=== PATIENT | female | born 1975 | race Caucasian/White ===

== ENCOUNTER 2018-06-19 13:42 | Inpatient (IN) | payer OTHER ==
[2018-06-19 14:56] VITALS: BMI 61.6
--- NOTE | 2018-06-19 15:28 | HP ---
CIWA Score - CIWA Score Nausea/Vomitin-Mild Nausea/No Vomiting Muscle Tremors: 3 Anxiety: 1-Mildly Anxious Agitation: 0-Normal Activity Paroxysmal Sweats: No Perspiration Orientation: 0-Oriented Tacttile Disturbances: 0-None Auditory Disturbances: 0-None Visual Disturbances: 1-Very Mild Sensitivity Headache: 0-None Present CIWA-Ar Total Score: 6 Admission ROS S - HPI Allergies/Adverse Reactions: Allergies Allergy/AdvReac Type Severity Reaction Status Date / Time Penicillins Allergy Severe Difficulty Verified 06/03/16 17:30 Breathing sulfamethoxazole Allergy Intermediate Rash Verified 06/03/16 17:30 [From Bactrim] trimethoprim [From Bactrim] Allergy Intermediate Rash Verified 06/03/16 17:30 History of Present Illness: pt here requesting detox from alcohol use , reports 10-12 cans of 24 oz each /day x 4 years , reports tremors if not drinking , denies seizures, + sweating , nausea , abdominal discomfort/ diarrhea . Reports she usually starts drinking in the morning , and drinks all day , self - referred to facility , previously 1-2 years ago . On MMTP @ [facility] reportedly 145 mg /day . Latest use of etoh this morning, current symptoms as above, PILI 0.100 PMHx : asthma, visually impaired- cataracts bilaterally 2/2 congenital nystagmus severe OA , morbid obesity , anemia/ low platelets PSHx : gastric bypass 13 years ago psych : depression, anxiety , no meds denies SI / HI meds : states previously was on Symbicort latest use this morning , Albuterol prn , does not have pharmacy to provide phone number for verification of medications , states previous pharmacy went out of business . Ambulating w/ cane 2/2 r knee oa denies legal issues lives w/ daughter age 27 lmp 6 mo ago upt neg utox + mtd tobacco use : denies - Ebola screening Have you traveled outside of the country in the last 21 days: No Have you had contact with anyone from an Ebola affected area: No Have you been sick,other than usual withdrawal symptoms: No Do you have a fever: No Patient History - Patient Medical History Hx Anemia: Yes (on iron) Hx Asthma: Yes (on albuterol inhaler) Hx Chronic Obstructive Pulmonary Disease (COPD): No Hx Cancer: No Hx Cardiac Disorders: No Hx Congestive Heart Failure: No Hx Hypertension: Yes Hx Hypercholesterolemia: No Hx Pacemaker: No HX Cerebrovascular Accident: No Hx Seizures: No Hx Dementia: No Hx Diabetes: Yes (borderline) Hx Gastrointestinal Disorders: No Hx Liver Disease: No Hx Genitourinary Disorders: No Hx Sexually Transmitted Disorders: No Hx Renal Disease (ESRD): No Hx Thyroid Disease: No Hx Human Immunodeficiency Virus (HIV): No (03/03 last tested) Hx Hepatitis C: No Hx Depression: Yes (ANXIETY) Hx Suicide Attempt: No Hx Bipolar Disorder: No Hx Schizophrenia: No - Patient Surgical History Past Surgical History: Yes Hx Neurologic Surgery: No Hx Cataract Extraction: No Hx Cardiac Surgery: No Hx Lung Surgery: No Hx Breast Surgery: No Hx Breast Biopsy: No Hx Abdominal Surgery: Yes (GASTRIC BYPASS: 2004) Hx Appendectomy: No Hx Cholecystectomy: No Hx Genitourinary Surgery: No Hx Section: No Hx Orthopedic Surgery: No Hx Hysterectomy: No Anesthesia Reaction: No - PPD History Date: 06/05/16 - Reproductive History Last Menstrual Period: 05/30/16 - Smoking Cessation Smoking history: Former smoker Have you smoked in the past 12 months: No Aproximately how many cigarettes per day: 0 Cigars Per Day: 0 Hx Chewing Tobacco Use: No Initiated information on smoking cessation: No Family Disease History - Family Disease History Family Disease History: Diabetes: Grandparent, Mother (alcohol), Other: Mother Admission Physical Exam S - Vital Signs Vital Signs: Vital Signs - 24 hr 06/19/18 14:54 Temperature 98.2 F Pulse Rate 97 H Respiratory 20 Rate Blood Pressure 143/76 - Physical General Appearance: Yes: Mild Distress, Tremorous, Other (morbid obesity , ambulating w/ cane) HEENTM: Yes: Hearing grossly Normal, Normocephalic, Normal Voice, Pharynx Normal , Other (bilateral cataracts, + nystagmus poor dentition) Respiratory: Yes: Chest Non-Tender, Decreased Breath Sounds, [place] Neck: Yes: No masses,lesions,Nodules Breast: Yes: Breast Exam Deferred Cardiology: Yes: Regular Rhythm, Regular Rate, Tachycardia Abdominal: Yes: Non Tender, Protuberent Musculoskeletal: Yes: Joint Stiffness Extremities: Yes: Tremors Neurological: Yes: Fully Oriented, Alert, Motor Strength 5/5 Integumentary: Yes: Normal Color, Dry, Warm - Diagnostic (1) Alcohol dependence with uncomplicated withdrawal Current Visit: No Status: Chronic (2) Asthma Current Visit: No Status: Chronic Qualifiers: Asthma severity: mild intermittent Asthma complication type: with status asthmaticus (3) Opioid dependence on agonist therapy Current Visit: No Status: Chronic (4) Vision impairment Current Visit: No Status: Chronic Comment: SINCE BLIND RIGHT EYE BHS Breath Alcohol Content Breath Alcohol Content: 0.100 Urine Pregancy Test - Result Urine Test Results: Negative- NO Line Present Urine Drug Screen - Results Drug Screen Negative: No Urine Drug Screen Results: MTD-Methadone
[2018-06-19] MEDS ORDERED: MAGNESIUM CITRATE 300 ML BOTTLE PO PRN (15:33)
[2018-06-19] MEDS ORDERED: MAG HYDROX/AL HYDROX/SIMETH 30 ML UNIT-DOSE CUP PO PRN (15:33)
[2018-06-19] MEDS ORDERED: guaiFENesin/D-METHORPHAN HB 10 ML UNIT-DOSE CUPS PO PRN (15:33)
[2018-06-19] MEDS ORDERED: MAGNESIUM HYDROX 2400MG/30ML ORAL SUSPENSION 30 ML CUP PO PRN (15:33)
[2018-06-19] MEDS ORDERED: ACETAMINOPHEN 325 MG TABLET (FP) PO PRN (15:33)
[2018-06-19] MEDS ORDERED: P-EPHED 60MG/TRIPROLIDI 2.5MG TABLET PO PRN (15:33)
[2018-06-19] MEDS ORDERED: chlordiazePOXIDE HCL 25 MG CAPSULE PO PRN (15:33)
[2018-06-19] MEDS ORDERED: MENTHOL/PHENOL 1 EACH UD MM PRN (15:33)
[2018-06-19] MEDS ORDERED: ALBUTEROL SO4 0.083% IH SOL 2.5 MG/3 ML VIAL.NEB. NEB PRN (15:34)
[2018-06-19] MEDS: THIAMINE HCL 100 MG TABLET (FP) PO SCH (22:10)
[2018-06-19] MEDS: chlordiazePOXIDE HCL 25 MG CAPSULE PO SCH (22:11)
[2018-06-20 01:30] LABS: URINE APPEARANCE CLEAR; URINE BILIRUBIN NEGATIVE (<2.0 mg/dL); URINE COLOR LTYELLOW; URINE GLUCOSE (UA) NEGATIVE (NEGATIVE); URINE KETONE NEGATIVE (NEGATIVE); URINE LEUK ESTERASE NEGATIVE (NEGATIVE); URINE NITRITE NEGATIVE (NEGATIVE); URINE PROTEIN NEGATIVE (NEGATIVE); URINE UROBILINOGEN NEGATIVE mg/dL (0.2-1.0)
[2018-06-20] MEDS: chlordiazePOXIDE HCL 25 MG CAPSULE PO SCH ×4 (05:58→22:39)
[2018-06-20] MEDS ORDERED: METHADONE HCL 10 MG TABLET PO ONE (08:49)
[2018-06-20] MEDS ORDERED: METHADONE 120 MG, METHADONE 20 MG, METHADONE 5 MG PO ONE (09:15)
[2018-06-20 10:02] LABS: HEMATOCRIT 36.2 % (32.4-45.2); HEMOGLOBIN 10.9 GM/dL (10.7-15.3); MCH 24.4 pg (25.7-33.7); MCHC 30.1 g/dl (32.0-36.0); MEAN CELL VOLUME 80.9 fl (80-96); PLATELET COUNT 100 K/MM3 (134-434); RBC 4.47 M/mm3 (3.60-5.2); RDW 26.1 % (11.6-15.6); WHITE BLOOD COUNT 4.8 K/mm3 (4.0-10.0)
[2018-06-20] MEDS ORDERED: METHADONE HCL 10 MG TABLET ONE (10:24)
[2018-06-20] MEDS ORDERED: METHADONE HCL 5 MG TABLET ONE (10:24)
[2018-06-20] MEDS ORDERED: METHADONE HCL 40 MG DISPERSABLE TABLET ONE (10:24)
[2018-06-20 10:25] LABS: ALBUMIN 3.1 g/dl (3.4-5.0); ALK PHOS 113 U/L (45-117); ANION GAP 7 MMOL/L (8-16); BILIRUBIN,TOTAL 0.9 mg/dL (0.2-1); BLOOD UREA NITROGEN 6 mg/dL (7-18); CALCIUM 8.4 mg/dL (8.5-10.1); CHLORIDE 100 mmol/L (98-107); CO2 30 mmol/L (21-32); CREATININE 0.5 mg/dL (0.55-1.3); GLUCOSE,RANDOM 72 mg/dL (74-106); POTASSIUM 4.1 mmol/L (3.5-5.1); SGOT/AST 73 U/L (15-37); SGPT/ALT 72 U/L (13-61); SODIUM 138 mmol/L (136-145); TOT PROT 7.3 g/dl (6.4-8.2)
[2018-06-20] MEDS: PRENATAL VITAMINS W/ FOLIC ACID TABLET (FP) PO SCH (10:26)
[2018-06-20] MEDS ORDERED: ONDANSETRON *ODT* 4 MG TABLET SL PRN (10:42)
--- NOTE | 2018-06-20 10:42 | PN ---
S CIWA - CIWA Score Nausea/Vomitin-No Nausea/No Vomiting Muscle Tremors: 4-Moderate,w/Arms Extend Anxiety: 4-Mod. Anxious/Guarded Agitation: 4-Moderately Restless Paroxysmal Sweats: 3 Orientation: 0-Oriented Tacttile Disturbances: 0-None Auditory Disturbances: 0-None Visual Disturbances: 0-None Headache: 1-Very Mild CIWA-Ar Total Score: 16 BHS Progress Note (SOAP) Subjective: headache shakes sweats interrupted sleep body aches nausea Objective: 06/20/18 10:41 Vital Signs Temperature 98.8 F 06/20/18 09:36 Pulse Rate 95 H 06/20/18 09:36 Respiratory Rate 16 06/20/18 09:36 Blood Pressure 148/90 06/20/18 09:36 O2 Sat by Pulse Oximetry (%) Laboratory Tests 06/19/18 06/20/18 06/20/18 22:50 07:00 07:00 WBC 4.8 RBC 4.47 Hgb 10.9 Hct 36.2 MCV 80.9 MCH 24.4 L MCHC 30.1 L RDW 26.1 H Plt Count 100 L MPV 11.0 Sodium 138 Potassium 4.1 Chloride 100 Carbon Dioxide 30 Anion Gap 7 L BUN 6 L Creatinine 0.5 L Creat Clearance w eGFR > 60 Random Glucose 72 L Calcium 8.4 L Total Bilirubin 0.9 AST 73 H ALT 72 H Alkaline Phosphatase 113 Total Protein 7.3 Albumin 3.1 L Urine Color Ltyellow Urine Appearance Clear Urine pH 5.0 D Ur Specific [place] 1.009 L Urine Protein Negative Urine Glucose (UA) Negative Urine Ketones Negative Urine Blood Negative Urine Nitrite Negative Urine Bilirubin Negative Urine Urobilinogen Negative Ur Leukocyte Esterase Negative aaox3 lying in bed no acute distress Assessment: 06/20/18 10:42 withdrawal sx Plan: continue detox increase fluids micky parrish prn
[2018-06-20] MEDS: THIAMINE HCL 100 MG TABLET (FP) PO SCH (22:39)
[2018-06-20] MEDS: IBUPROFEN 400 MG TABLET (FP) PO PRN (22:41)
[2018-06-21] MEDS ORDERED: METHADONE HCL 40 MG DISPERSABLE TABLET ONE (04:50)
[2018-06-21] MEDS ORDERED: METHADONE HCL 5 MG TABLET ONE (04:50)
[2018-06-21] MEDS ORDERED: METHADONE HCL 10 MG TABLET ONE (04:51)
[2018-06-21] MEDS: METHADONE 120 MG, METHADONE 20 MG, METHADONE 5 MG PO SCH (05:29)
[2018-06-21] MEDS: chlordiazePOXIDE HCL 25 MG CAPSULE PO SCH ×3 (05:29→17:58)
[2018-06-21] MEDS ORDERED: METHADONE HCL 40 MG DISPERSABLE TABLET PO SCH (06:00)
[2018-06-21] MEDS: PRENATAL VITAMINS W/ FOLIC ACID TABLET (FP) PO SCH (10:19)
[2018-06-21] MEDS: ALBUTEROL SO4 8 GM HFA INHALER IH PRN (10:19)
--- NOTE | 2018-06-21 11:15 | PN ---
S CIWA - CIWA Score Nausea/Vomitin-No Nausea/No Vomiting Muscle Tremors: 4-Moderate,w/Arms Extend Anxiety: 3 Agitation: 3 Paroxysmal Sweats: 3 Orientation: 0-Oriented Tacttile Disturbances: 0-None Auditory Disturbances: 0-None Visual Disturbances: 0-None Headache: 0-None Present CIWA-Ar Total Score: 13 S Progress Note (SOAP) Subjective: body aches headache restless legs anxiety Objective: 06/21/18 11:14 Vital Signs Temperature 98.4 F 06/21/18 09:11 Pulse Rate 95 H 06/21/18 09:11 Respiratory Rate 18 06/21/18 09:11 Blood Pressure 132/74 06/21/18 09:11 O2 Sat by Pulse Oximetry (%) Laboratory Tests 06/19/18 06/20/18 06/20/18 22:50 07:00 07:00 WBC 4.8 RBC 4.47 Hgb 10.9 Hct 36.2 MCV 80.9 MCH 24.4 L MCHC 30.1 L RDW 26.1 H Plt Count 100 L MPV 11.0 Sodium 138 Potassium 4.1 Chloride 100 Carbon Dioxide 30 Anion Gap 7 L BUN 6 L Creatinine 0.5 L Creat Clearance w eGFR > 60 Random Glucose 72 L Calcium 8.4 L Total Bilirubin 0.9 AST 73 H ALT 72 H Alkaline Phosphatase 113 Total Protein 7.3 Albumin 3.1 L Urine Color Ltyellow Urine Appearance Clear Urine pH 5.0 D Ur Specific [place] 1.009 L Urine Protein Negative Urine Glucose (UA) Negative Urine Ketones Negative Urine Blood Negative Urine Nitrite Negative Urine Bilirubin Negative Urine Urobilinogen Negative Ur Leukocyte Esterase Negative RPR Titer 06/20/18 07:00 WBC RBC Hgb Hct MCV MCH MCHC RDW Plt Count MPV Sodium Potassium Chloride Carbon Dioxide Anion Gap BUN Creatinine Creat Clearance w eGFR Random Glucose Calcium Total Bilirubin AST ALT Alkaline Phosphatase Total Protein Albumin Urine Color Urine Appearance Urine pH Ur Specific [place] Urine Protein Urine Glucose (UA) Urine Ketones Urine Blood Urine Nitrite Urine Bilirubin Urine Urobilinogen Ur Leukocyte Esterase RPR Titer Nonreactive aaox3 lying in bed no acute distress Assessment: 06/21/18 11:14 withdrawal sx Plan: continue detox increase fluids motrin/tylenol prn
[2018-06-21] MEDS: IBUPROFEN 400 MG TABLET (FP) PO PRN ×2 (14:00→22:10)
[2018-06-21] MEDS: chlordiazePOXIDE 5 MG CAPSULE PO SCH (22:07)
[2018-06-21] MEDS: MELATONIN 5 MG TABLETS PO PRN (22:07)
[2018-06-21] MEDS: THIAMINE HCL 100 MG TABLET (FP) PO SCH (22:07)
[2018-06-22] MEDS ORDERED: METHADONE HCL 5 MG TABLET ONE (04:50)
[2018-06-22] MEDS ORDERED: METHADONE HCL 40 MG DISPERSABLE TABLET ONE (04:51)
[2018-06-22] MEDS ORDERED: METHADONE HCL 10 MG TABLET ONE (04:52)
[2018-06-22] MEDS: chlordiazePOXIDE 5 MG CAPSULE PO SCH ×3 (05:20→17:18)
[2018-06-22] MEDS: METHADONE 120 MG, METHADONE 20 MG, METHADONE 5 MG PO SCH (05:21)
--- NOTE | 2018-06-22 10:20 | PN ---
BHS Progress Note (SOAP) Subjective: john sweats/shakes Objective: 06/22/18 10:19 Vital Signs Temperature 99.5 F 06/22/18 09:26 Pulse Rate 89 06/22/18 09:26 Respiratory Rate 18 06/22/18 09:26 Blood Pressure 132/86 06/22/18 09:26 O2 Sat by Pulse Oximetry (%) aaox3 ambulating no acute distress Assessment: 06/22/18 10:19 withdrawal sx Plan: continue detox increase fluids d/c in am
[2018-06-22] MEDS: PRENATAL VITAMINS W/ FOLIC ACID TABLET (FP) PO SCH (10:40)
[2018-06-22] MEDS: IBUPROFEN 400 MG TABLET (FP) PO PRN ×2 (10:42→22:18)
[2018-06-22] MEDS: THIAMINE HCL 100 MG TABLET (FP) PO SCH (22:17)
[2018-06-22] MEDS: chlordiazePOXIDE HCL 10 MG CAPSULE PO SCH (22:17)
[2018-06-22] MEDS: MELATONIN 5 MG TABLETS PO PRN (22:17)
[2018-06-22] MEDS: ALBUTEROL SO4 8 GM HFA INHALER IH PRN (22:18)
[2018-06-23] MEDS ORDERED: METHADONE HCL 5 MG TABLET ONE (04:47)
[2018-06-23] MEDS ORDERED: METHADONE HCL 40 MG DISPERSABLE TABLET ONE (04:47)
[2018-06-23] MEDS ORDERED: METHADONE HCL 10 MG TABLET ONE (04:47)
[2018-06-23] MEDS: chlordiazePOXIDE HCL 10 MG CAPSULE PO SCH (05:28)
[2018-06-23] MEDS: METHADONE 120 MG, METHADONE 20 MG, METHADONE 5 MG PO SCH (05:29)
[2018-06-23 06:35] VITALS: BP 124/74; PULSE 79; TEMP 97.9
--- NOTE | 2018-06-23 13:46 | DS ---
[facility] Detox Discharge Summary Admission Date: 06/19/18 Discharge Date: 06/23/18 - History Present History: Alcohol Dependence - Physical Exam Results Vital Signs: Vital Signs Temperature 97.9 F 06/23/18 06:00 Pulse Rate 79 06/23/18 06:00 Respiratory Rate 18 06/23/18 06:00 Blood Pressure 124/74 06/23/18 06:00 O2 Sat by Pulse Oximetry (%) Pertinent Admission Physical Exam Findings: PATIENT TOLERATED DETOX WITHOUT ADVERSE EVENT. PATIENT D/C HOME IN STABLE CLINICAL CONDITION. DENIES SI/HI. PATIENT ENCOURAGED TO ATTEND GROUP MEETINGS TO PREVENT RELAPSE AND TO FOLLOW UP WITH PCP WITHIN ONE WEEK OF DISCHARGE. PATIENT GIVEN D/C INSTRUCTIONS BY STAFF AND INFORMED TO GO TO ER IF WITHDRAWAL SYMPTOMS OCCUR. - Treatment Hospital Course: Detox Protocol Followed, Detoxed Safely, Responded well, Discharged Condition Good - Medication Discharge Medications: Ambulatory Orders Albuterol Sulfate Inhaler - [Ventolin Hfa Inhaler -] 2 inh PO Q4H PRN 03/18/16 Budesonide/Formeterol Fumarate [SYMBICORT 80/4.5mcg -] 1 inh PO BID 06/19/18 - AMA Did Patient Leave Against Medical Advice: No
== END 2018-06-23 06:57 | disposition home or self-care (01) | DRG 773 ==
LOC: YASAS 13:42 → Y6N 17:39
PROC: HZ2ZZZZ Detoxification Services for Substance Abuse Treatment (ICD-10-PCS; principal; 2018-06-19)
PROC: HZ2ZZZZ Detoxification Services for Substance Abuse Treatment (ICD-10-PCS; 2018-06-19)
DX: F10.230 Alcohol dependence with withdrawal, uncomplicated (principal); F11.20 Opioid dependence, uncomplicated; F41.9 Anxiety disorder, unspecified; F31.9 Bipolar disorder, unspecified; I10 Essential (primary) hypertension; E11.9 Type 2 diabetes mellitus without complications; J45.22 Mild intermittent asthma with status asthmaticus; H54.7 Unspecified visual loss; M17.10 Unilateral primary osteoarthritis, unspecified knee; E66.01 Morbid (severe) obesity due to excess calories; Z68.44 Body mass index [BMI] 60.0-69.9, adult; R26.89 Other abnormalities of gait and mobility; Z99.89 Dependence on other enabling machines and devices; Z88.0 Allergy status to penicillin; Z88.2 Allergy status to sulfonamides; Z98.84 Bariatric surgery status
CPT/HCPCS: 36415; 80053; 81003; 85027; 86593

== ENCOUNTER 2018-06-25 13:27 | Inpatient (IN) | payer OTHER ==
[2018-06-25 17:34] VITALS: BMI 62.3
--- NOTE | 2018-06-25 18:48 | HP ---
Admission [facility] Chief Complaint: alcohol rehabilitation Allergies/Adverse Reactions: Allergies Allergy/AdvReac Type Severity Reaction Status Date / Time Penicillins Allergy Severe Difficulty Verified 06/25/18 17:22 Breathing sulfamethoxazole Allergy Intermediate Rash Verified 06/25/18 17:22 [From Bactrim] trimethoprim [From Bactrim] Allergy Intermediate Rash Verified 06/25/18 17:22 History of Present Illness: 42 yo female with hx of alcohol dependence is here seeking rehabilitation, after completing detox at [facility] 06/19/18 -06/23/18. On MMTP @ [facility] reportedly 145 mg /day, last medicated today. PMHx : asthma, visually impaired- cataracts bilaterally 2/2 congenital nystagmus, severe OA , morbid obesity, anemia/ low platelets , gastric bypass 13 years ago ,depression, anxiety. Denies suicidal / homicidal ideation. Denies any legal issues at this time. Exam Limitations: No Limitations - Ebola screening Have you traveled outside of the country in the last 21 days: No Have you had contact with anyone from an Ebola affected area: No Have you been sick,other than usual withdrawal symptoms: No - Review of Systems Constitutional: Changes in sleep EENT: reports: See HPI (legally blind, reports some vision present in the left eye) Respiratory: reports: See HPI, SOB with Exertion Cardiac: reports: No Symptoms Reported GI: reports: No Symptoms Reported : reports: Urgency Musculoskeletal: reports: Joint Pain (AO), Other (uses cane for ambulation) Integumentary: reports: No Symptoms Reported Neuro: reports: Numbness (both hands, carpal tunnel right hand) Endocrine: reports: Increased Thirst Hematology: reports: Anemia, Other (low platelets) Psychiatric: reports: Orientated x3, Depressed Other Systems: Reviewed and Negative Patient History - Patient Medical History Hx Anemia: Yes (on iron) Hx Asthma: Yes Hx Chronic Obstructive Pulmonary Disease (COPD): No Hx Cancer: No Hx Cardiac Disorders: No Hx Congestive Heart Failure: No Hx Hypertension: Yes (currently not on medication) Hx Hypercholesterolemia: No Hx Pacemaker: No HX Cerebrovascular Accident: No Hx Seizures: No Hx Dementia: No Hx Diabetes: No Hx Gastrointestinal Disorders: Yes (gastritis) Hx Liver Disease: No Hx Genitourinary Disorders: No Hx Sexually Transmitted Disorders: No Hx Renal Disease (ESRD): No Hx Thyroid Disease: No Hx Human Immunodeficiency Virus (HIV): No (03/03 last tested) Hx Hepatitis C: No Hx Depression: Yes Hx Suicide Attempt: No Hx Bipolar Disorder: No Hx Schizophrenia: No - Patient Surgical History Past Surgical History: Yes Hx Neurologic Surgery: No Hx Cataract Extraction: No Hx Cardiac Surgery: No Hx Lung Surgery: No Hx Breast Surgery: No Hx Breast Biopsy: No Hx Abdominal Surgery: Yes (GASTRIC BYPASS: 2004) Hx Appendectomy: No Hx Cholecystectomy: No Hx Genitourinary Surgery: No Hx Section: No Hx Orthopedic Surgery: No Hx Hysterectomy: No Anesthesia Reaction: No - PPD History Previous Implant?: No Documented Results: Negative w/proof Date: 06/21/18 Results: 0 mm PPD to be Administered?: No - Reproductive History Patient is a Female of Child Bearing Age (11 -55 yrs old): Yes Last Menstrual Period: 01/19/18 Patient : No - Smoking Cessation Smoking history: Former smoker Have you smoked in the past 12 months: No Aproximately how many cigarettes per day: 0 If you are a former smoker, when did you quit?: 20 yrs. ago Cigars Per Day: 0 Hx Chewing Tobacco Use: No Initiated information on smoking cessation: No - Substance & Tx. History Hx Alcohol Use: Yes Hx Substance Use: Yes Substance Use Type: Alcohol Hx Substance Use Treatment: Yes ([facility] 06/19/18 -06/23/18) - Substances Abused Alcohol Route: Oral Frequency: Daily Amount used: 12 - 16 x 24 oz can beer Age of first use: 31 Date of Last Use: 06/19/18 Family Disease History - Family Disease History Family Disease History: Diabetes: Grandparent, Mother (alcohol), Other: Mother Admission Physical Exam [facility] - Vital Signs Vital Signs: Vital Signs - 24 hr 06/25/18 17:29 Temperature 96.0 F L Pulse Rate 87 Respiratory 18 Rate Blood Pressure 126/74 - Physical General Appearance: Yes: Appropriately Dressed, Obese, Anxious HEENTM: Yes: Hearing grossly Normal, Normal ENT Inspection, Normocephalic, Normal Voice, Pharynx Normal, Tm's normal, Other (bilateral cataracts, + nystagmus poor dentition) Respiratory: Yes: Within Normal Limits Neck: Yes: Within Normal Limits Breast: Yes: Breast Exam Deferred Cardiology: Yes: Regular Rhythm, Regular Rate Abdominal: Yes: Normal Bowel Sounds, Non Tender, Soft, Protuberent Genitourinary: Yes: Within Normal Limits Back: Yes: Normal Inspection Musculoskeletal: Yes: full range of Motion, Gait Steady, Pelvis Stable, Other ( uses cane for ambulation) Extremities: Yes: Normal Capillary Refill, Normal Inspection, Normal Range of Motion, Non-Tender Neurological: Yes: specialist employee labor relations II-XII NML intact, Fully Oriented, Alert, Motor Strength 5/5, Depressed Affect Integumentary: Yes: Normal Color, Dry, Warm Lymphatic: Yes: Within Normal Limits - Diagnostic (1) Alcohol dependence Current Visit: Yes Status: Acute Qualifiers: Substance use status: uncomplicated Qualified Code(s): F10.20 - Alcohol dependence, uncomplicated (2) Anemia Current Visit: Yes Status: Chronic Qualifiers: Anemia type: iron deficiency Iron deficiency anemia type: inadequate dietary iron intake Qualified Code(s): D50.8 - Other iron deficiency anemias (3) Chronic back pain Current Visit: No Status: Chronic Qualifiers: Back pain location: low back pain Back pain laterality: bilateral Sciatica presence: without sciatica Qualified Code(s): M54.5 - Low back pain (4) DM (diabetes mellitus), type 2 Current Visit: Yes Status: Chronic Qualifiers: Diabetes mellitus buttermaker continuous churn insulin use: without buttermaker continuous churn use Diabetes mellitus complication status: without complication Qualified Code(s): E11.9 - Type 2 diabetes mellitus without complications Comment: DIETARY CONTROL (5) Hypertension Current Visit: No Status: Chronic Qualifiers: Hypertension type: essential hypertension Qualified Code(s): I10 - Essential (primary) hypertension (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 Dose pending verification (8) Vision impairment Current Visit: Yes Status: Chronic Comment: SINCE BLIND RIGHT EYE BHS Breath Alcohol Content Breath Alcohol Content: 0 Urine Pregancy Test - Result Urine Test Results: Negative- NO Line Present Urine Drug Screen - Results Drug Screen Negative: No Urine Drug Screen Results: BZO-Benzodiazepines, MTD-Methadone Inpatient Rehab Admission - Initial Determination Are CD services needed?: Yes Free of communicable disease: Yes Not in need of hospitalization: Yes - Rehab Admission Criteria Previous failed treatment: Yes Poor recovery environment: Yes Comorbidities: Yes Lacks judgement: Yes Patient is meeting Inpatient Rehab admission criteria:: Yes
[2018-06-25] MEDS ORDERED: ALBUTEROL SO4 8 GM HFA INHALER IH PRN (18:49)
[2018-06-25] MEDS ORDERED: ALBUTEROL SO4 2.5/IPRATROPIUM 0.5 INH SOL 3 ML VIAL.NEB. NEB PRN (18:50)
[2018-06-25] MEDS ORDERED: IBUPROFEN 400 MG TABLET (FP) PO PRN (18:51)
[2018-06-25] MEDS ORDERED: MAGNESIUM CITRATE 300 ML BOTTLE PO PRN (18:51)
[2018-06-25] MEDS ORDERED: LOPERAMIDE HCL 2 MG CAPSULE PO PRN (18:51)
[2018-06-25] MEDS ORDERED: P-EPHED 60MG/TRIPROLIDI 2.5MG TABLET PO PRN (18:51)
[2018-06-25] MEDS ORDERED: ACETAMINOPHEN 325 MG TABLET (FP) PO PRN (18:51)
[2018-06-25] MEDS ORDERED: MENTHOL/PHENOL 1 EACH UD MM PRN (18:51)
[2018-06-25] MEDS ORDERED: MAGNESIUM HYDROX 2400MG/30ML ORAL SUSPENSION 30 ML CUP PO PRN (18:51)
[2018-06-25] MEDS ORDERED: MAG HYDROX/AL HYDROX/SIMETH 30 ML UNIT-DOSE CUP PO PRN (18:51)
[2018-06-25] MEDS ORDERED: guaiFENesin/D-METHORPHAN HB 10 ML UNIT-DOSE CUPS PO PRN (18:51)
[2018-06-25] MEDS ORDERED: MELATONIN 5 MG TABLETS PO PRN (22:00)
[2018-06-25] MEDS: LIDOCAINE PATCH REMOVAL MC SCH (23:38)
[2018-06-25] MEDS: THIAMINE HCL 100 MG TABLET (FP) PO SCH (23:39)
[2018-06-25] MEDS: BUDESONIDE/FORMETEROL FUMARATE 80/4.5 mcg INHALER IH SCH (23:39)
[2018-06-25] MEDS ORDERED: PT OWN MED DRAWER 7, Y5N ONE (23:47)
[2018-06-26 01:20] LABS: URINE APPEARANCE CLEAR; URINE BILIRUBIN NEGATIVE (<2.0 mg/dL); URINE COLOR STRAW; URINE GLUCOSE (UA) NEGATIVE (NEGATIVE); URINE KETONE NEGATIVE (NEGATIVE); URINE LEUK ESTERASE NEGATIVE (NEGATIVE); URINE NITRITE NEGATIVE (NEGATIVE); URINE PROTEIN NEGATIVE (NEGATIVE); URINE UROBILINOGEN NEGATIVE mg/dL (0.2-1.0)
[2018-06-26] MEDS ORDERED: METHADONE HCL 10 MG TABLET PO SCH (07:15)
[2018-06-26] MEDS ORDERED: METHADONE HCL 5 MG TABLET ONE (07:53)
[2018-06-26] MEDS ORDERED: METHADONE HCL 10 MG TABLET ONE (07:53)
[2018-06-26] MEDS ORDERED: METHADONE HCL 40 MG DISPERSABLE TABLET ONE (07:54)
[2018-06-26] MEDS: METHADONE 120 MG, METHADONE 20 MG, METHADONE 5 MG PO SCH (07:55)
[2018-06-26] MEDS: FERROUS SO4 325 MG TABLET (FP) PO SCH (07:58)
[2018-06-26] MEDS: PRENATAL VITAMINS W/ FOLIC ACID TABLET (FP) PO SCH (10:59)
[2018-06-26] MEDS: LIDOCAINE 5% TOPICAL PATCH TP SCH (10:59)
[2018-06-26] MEDS: BUDESONIDE/FORMETEROL FUMARATE 80/4.5 mcg INHALER IH SCH ×2 (11:00→21:42)
[2018-06-26] MEDS: THIAMINE HCL 100 MG TABLET (FP) PO SCH (21:41)
[2018-06-26] MEDS: LIDOCAINE PATCH REMOVAL MC SCH (21:41)
[2018-06-26] MEDS: CYCLOBENZAPRINE HCL 5 MG TABLET PO SCH (21:41)
[2018-06-27] MEDS ORDERED: METHADONE HCL 40 MG DISPERSABLE TABLET ONE (03:24)
[2018-06-27] MEDS ORDERED: METHADONE HCL 5 MG TABLET ONE (03:24)
[2018-06-27] MEDS ORDERED: METHADONE HCL 10 MG TABLET ONE (03:24)
[2018-06-27] MEDS: METHADONE 120 MG, METHADONE 20 MG, METHADONE 5 MG PO SCH (06:29)
[2018-06-27] MEDS: CYCLOBENZAPRINE HCL 5 MG TABLET PO SCH ×3 (06:30→21:57)
[2018-06-27] MEDS: FERROUS SO4 325 MG TABLET (FP) PO SCH (07:32)
[2018-06-27] MEDS: LIDOCAINE 5% TOPICAL PATCH TP SCH (10:43)
[2018-06-27] MEDS: PRENATAL VITAMINS W/ FOLIC ACID TABLET (FP) PO SCH (10:43)
[2018-06-27] MEDS: BUDESONIDE/FORMETEROL FUMARATE 80/4.5 mcg INHALER IH SCH ×2 (10:43→21:57)
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
[2018-06-27] MEDS: hydrOXYzine PAMOATE 50 MG CAPSULE (FP) PO PRN (21:57)
[2018-06-27] MEDS: THIAMINE HCL 100 MG TABLET (FP) PO SCH (21:57)
[2018-06-27] MEDS: LIDOCAINE PATCH REMOVAL MC SCH (21:59)
[2018-06-28] MEDS ORDERED: METHADONE HCL 10 MG TABLET ONE (03:02)
[2018-06-28] MEDS ORDERED: METHADONE HCL 5 MG TABLET ONE (03:02)
[2018-06-28] MEDS ORDERED: METHADONE HCL 40 MG DISPERSABLE TABLET ONE (03:03)
[2018-06-28] MEDS: CYCLOBENZAPRINE HCL 5 MG TABLET PO SCH ×3 (06:19→21:46)
[2018-06-28] MEDS: METHADONE 120 MG, METHADONE 20 MG, METHADONE 5 MG PO SCH (06:20)
[2018-06-28] MEDS: FERROUS SO4 325 MG TABLET (FP) PO SCH (07:33)
[2018-06-28] MEDS ORDERED: PT OWN MED DRAWER 7, Y5N ONE ×2 (08:47→10:50)
[2018-06-28] MEDS: LIDOCAINE 5% TOPICAL PATCH TP SCH (10:35)
[2018-06-28] MEDS: PRENATAL VITAMINS W/ FOLIC ACID TABLET (FP) PO SCH (10:35)
[2018-06-28] MEDS: BUDESONIDE/FORMETEROL FUMARATE 80/4.5 mcg INHALER IH SCH ×2 (10:37→21:47)
[2018-06-28] MEDS: THIAMINE HCL 100 MG TABLET (FP) PO SCH (21:46)
[2018-06-28] MEDS: hydrOXYzine PAMOATE 50 MG CAPSULE (FP) PO PRN (21:46)
[2018-06-28] MEDS: LIDOCAINE PATCH REMOVAL MC SCH (21:47)
[2018-06-29] MEDS ORDERED: METHADONE HCL 40 MG DISPERSABLE TABLET ONE (05:51)
[2018-06-29] MEDS ORDERED: METHADONE HCL 5 MG TABLET ONE (05:51)
[2018-06-29] MEDS ORDERED: METHADONE HCL 10 MG TABLET ONE (05:51)
[2018-06-29] MEDS: CYCLOBENZAPRINE HCL 5 MG TABLET PO SCH ×3 (06:20→21:19)
[2018-06-29] MEDS: METHADONE 120 MG, METHADONE 20 MG, METHADONE 5 MG PO SCH (06:20)
[2018-06-29] MEDS: FERROUS SO4 325 MG TABLET (FP) PO SCH (07:26)
[2018-06-29] MEDS: LIDOCAINE 5% TOPICAL PATCH TP SCH (10:38)
[2018-06-29] MEDS: COLLOIDAL OATMEAL 1 BAR EACH TP PRN (10:38)
[2018-06-29] MEDS: PRENATAL VITAMINS W/ FOLIC ACID TABLET (FP) PO SCH (10:39)
[2018-06-29] MEDS: BUDESONIDE/FORMETEROL FUMARATE 80/4.5 mcg INHALER IH SCH ×2 (10:39→21:18)
[2018-06-29] MEDS ORDERED: PT OWN MED DRAWER 7, Y5N ONE ×2 (20:45→21:47)
[2018-06-29] MEDS: hydrOXYzine PAMOATE 50 MG CAPSULE (FP) PO PRN (21:19)
[2018-06-29] MEDS: THIAMINE HCL 100 MG TABLET (FP) PO SCH (21:19)
[2018-06-29] MEDS: LIDOCAINE PATCH REMOVAL MC SCH (21:19)
[2018-06-30] MEDS ORDERED: METHADONE HCL 5 MG TABLET ONE (05:58)
[2018-06-30] MEDS ORDERED: METHADONE HCL 10 MG TABLET ONE (05:59)
[2018-06-30] MEDS ORDERED: METHADONE HCL 40 MG DISPERSABLE TABLET ONE (05:59)
[2018-06-30] MEDS: CYCLOBENZAPRINE HCL 5 MG TABLET PO SCH ×3 (06:23→21:48)
[2018-06-30] MEDS: METHADONE 120 MG, METHADONE 20 MG, METHADONE 5 MG PO SCH (06:24)
[2018-06-30] MEDS: FERROUS SO4 325 MG TABLET (FP) PO SCH (07:08)
[2018-06-30] MEDS ORDERED: PT OWN MED DRAWER 7, Y5N ONE (08:41)
[2018-06-30] MEDS: PRENATAL VITAMINS W/ FOLIC ACID TABLET (FP) PO SCH (10:35)
[2018-06-30] MEDS: BUDESONIDE/FORMETEROL FUMARATE 80/4.5 mcg INHALER IH SCH ×2 (10:35→21:48)
[2018-06-30] MEDS: LIDOCAINE 5% TOPICAL PATCH TP SCH (10:35)
[2018-06-30] MEDS: THIAMINE HCL 100 MG TABLET (FP) PO SCH (21:48)
[2018-06-30] MEDS: hydrOXYzine PAMOATE 50 MG CAPSULE (FP) PO PRN (21:48)
[2018-06-30] MEDS: LIDOCAINE PATCH REMOVAL MC SCH (21:49)
[2018-07-01] MEDS ORDERED: METHADONE HCL 5 MG TABLET ONE (06:28)
[2018-07-01] MEDS ORDERED: METHADONE HCL 10 MG TABLET ONE (06:28)
[2018-07-01] MEDS ORDERED: METHADONE HCL 40 MG DISPERSABLE TABLET ONE (06:29)
[2018-07-01] MEDS: CYCLOBENZAPRINE HCL 5 MG TABLET PO SCH ×3 (06:32→21:54)
[2018-07-01] MEDS: METHADONE 120 MG, METHADONE 20 MG, METHADONE 5 MG PO SCH (06:32)
[2018-07-01] MEDS: FERROUS SO4 325 MG TABLET (FP) PO SCH (07:27)
[2018-07-01] MEDS: PRENATAL VITAMINS W/ FOLIC ACID TABLET (FP) PO SCH (10:21)
[2018-07-01] MEDS: BUDESONIDE/FORMETEROL FUMARATE 80/4.5 mcg INHALER IH SCH ×2 (10:21→21:55)
[2018-07-01] MEDS: LIDOCAINE 5% TOPICAL PATCH TP SCH (10:21)
[2018-07-01] MEDS: THIAMINE HCL 100 MG TABLET (FP) PO SCH (21:54)
[2018-07-01] MEDS: hydrOXYzine PAMOATE 50 MG CAPSULE (FP) PO PRN (21:55)
[2018-07-01] MEDS: LIDOCAINE PATCH REMOVAL MC SCH (21:55)
[2018-07-02] MEDS ORDERED: METHADONE HCL 5 MG TABLET ONE (05:58)
[2018-07-02] MEDS ORDERED: METHADONE HCL 10 MG TABLET ONE (05:58)
[2018-07-02] MEDS ORDERED: METHADONE HCL 40 MG DISPERSABLE TABLET ONE (05:59)
[2018-07-02] MEDS: CYCLOBENZAPRINE HCL 5 MG TABLET PO SCH ×3 (06:25→21:35)
[2018-07-02] MEDS: METHADONE 120 MG, METHADONE 20 MG, METHADONE 5 MG PO SCH (06:26)
[2018-07-02] MEDS: FERROUS SO4 325 MG TABLET (FP) PO SCH (07:22)
[2018-07-02] MEDS: PRENATAL VITAMINS W/ FOLIC ACID TABLET (FP) PO SCH (10:35)
[2018-07-02] MEDS: LIDOCAINE 5% TOPICAL PATCH TP SCH (10:35)
[2018-07-02] MEDS: BUDESONIDE/FORMETEROL FUMARATE 80/4.5 mcg INHALER IH SCH ×2 (10:35→21:33)
[2018-07-02] MEDS: MINERAL OIL/PETROLAT/WATER TOPICAL CREAM 113 GM JAR TP SCH (16:10)
[2018-07-02] MEDS: LIDOCAINE PATCH REMOVAL MC SCH (21:35)
[2018-07-02] MEDS: hydrOXYzine PAMOATE 50 MG CAPSULE (FP) PO PRN (21:35)
[2018-07-02] MEDS: THIAMINE HCL 100 MG TABLET (FP) PO SCH (21:35)
[2018-07-02] MEDS: TOLNAFTATE 1% CREAM 15 GM TUBE TP SCH (21:37)
[2018-07-03] MEDS ORDERED: METHADONE HCL 10 MG TABLET ONE (06:02)
[2018-07-03] MEDS ORDERED: METHADONE HCL 40 MG DISPERSABLE TABLET ONE (06:02)
[2018-07-03] MEDS ORDERED: METHADONE HCL 5 MG TABLET ONE (06:02)
[2018-07-03] MEDS: METHADONE 120 MG, METHADONE 20 MG, METHADONE 5 MG PO SCH (06:27)
[2018-07-03] MEDS: CYCLOBENZAPRINE HCL 5 MG TABLET PO SCH ×3 (06:27→21:38)
[2018-07-03] MEDS: FERROUS SO4 325 MG TABLET (FP) PO SCH (07:02)
[2018-07-03] MEDS ORDERED: ALBUTEROL SO4 2.5/IPRATROPIUM 0.5 INH SOL 3 ML VIAL.NEB. NEB PRN (07:47)
[2018-07-03] MEDS: LIDOCAINE 5% TOPICAL PATCH TP SCH (10:41)
[2018-07-03] MEDS: PRENATAL VITAMINS W/ FOLIC ACID TABLET (FP) PO SCH (10:41)
[2018-07-03] MEDS: TOLNAFTATE 1% CREAM 15 GM TUBE TP SCH ×2 (10:41→21:44)
[2018-07-03] MEDS: BUDESONIDE/FORMETEROL FUMARATE 80/4.5 mcg INHALER IH SCH ×2 (10:41→21:37)
[2018-07-03] MEDS: MINERAL OIL/PETROLAT/WATER TOPICAL CREAM 113 GM JAR TP SCH (10:42)
[2018-07-03] MEDS ORDERED: PT OWN MED DRAWER 7, Y5N ONE (10:56)
[2018-07-03] MEDS: hydrOXYzine PAMOATE 50 MG CAPSULE (FP) PO PRN (21:38)
[2018-07-03] MEDS: THIAMINE HCL 100 MG TABLET (FP) PO SCH (21:38)
[2018-07-03] MEDS: LIDOCAINE PATCH REMOVAL MC SCH (21:44)
[2018-07-04] MEDS ORDERED: METHADONE HCL 40 MG DISPERSABLE TABLET ONE (02:56)
[2018-07-04] MEDS ORDERED: METHADONE HCL 10 MG TABLET ONE (02:56)
[2018-07-04] MEDS ORDERED: METHADONE HCL 5 MG TABLET ONE (02:56)
[2018-07-04] MEDS: CYCLOBENZAPRINE HCL 5 MG TABLET PO SCH ×3 (06:11→21:09)
[2018-07-04] MEDS: METHADONE 120 MG, METHADONE 20 MG, METHADONE 5 MG PO SCH (06:12)
[2018-07-04] MEDS: FERROUS SO4 325 MG TABLET (FP) PO SCH (08:00)
[2018-07-04] MEDS: PRENATAL VITAMINS W/ FOLIC ACID TABLET (FP) PO SCH (10:16)
[2018-07-04] MEDS: BUDESONIDE/FORMETEROL FUMARATE 80/4.5 mcg INHALER IH SCH ×2 (10:17→21:10)
[2018-07-04] MEDS: MINERAL OIL/PETROLAT/WATER TOPICAL CREAM 113 GM JAR TP SCH (10:17)
[2018-07-04] MEDS: TOLNAFTATE 1% CREAM 15 GM TUBE TP SCH ×2 (10:17→21:10)
[2018-07-04] MEDS: LIDOCAINE 5% TOPICAL PATCH TP SCH (10:18)
[2018-07-04] MEDS: hydrOXYzine PAMOATE 50 MG CAPSULE (FP) PO PRN (21:09)
[2018-07-04] MEDS: THIAMINE HCL 100 MG TABLET (FP) PO SCH (21:09)
[2018-07-04] MEDS: LIDOCAINE PATCH REMOVAL MC SCH (21:10)
[2018-07-05] MEDS ORDERED: METHADONE HCL 5 MG TABLET ONE (03:19)
[2018-07-05] MEDS ORDERED: METHADONE HCL 10 MG TABLET ONE (03:19)
[2018-07-05] MEDS ORDERED: METHADONE HCL 40 MG DISPERSABLE TABLET ONE (03:19)
[2018-07-05] MEDS: CYCLOBENZAPRINE HCL 5 MG TABLET PO SCH ×3 (06:07→21:33)
[2018-07-05] MEDS: METHADONE 120 MG, METHADONE 20 MG, METHADONE 5 MG PO SCH (06:08)
[2018-07-05] MEDS: FERROUS SO4 325 MG TABLET (FP) PO SCH (07:13)
[2018-07-05] MEDS: BUDESONIDE/FORMETEROL FUMARATE 80/4.5 mcg INHALER IH SCH ×2 (10:07→21:33)
[2018-07-05] MEDS: MINERAL OIL/PETROLAT/WATER TOPICAL CREAM 113 GM JAR TP SCH (10:07)
[2018-07-05] MEDS: PRENATAL VITAMINS W/ FOLIC ACID TABLET (FP) PO SCH (10:07)
[2018-07-05] MEDS: LIDOCAINE 5% TOPICAL PATCH TP SCH (10:07)
[2018-07-05] MEDS: TOLNAFTATE 1% CREAM 15 GM TUBE TP SCH ×2 (10:08→21:33)
[2018-07-05] MEDS: hydrOXYzine PAMOATE 50 MG CAPSULE (FP) PO PRN (21:33)
[2018-07-05] MEDS: THIAMINE HCL 100 MG TABLET (FP) PO SCH (21:33)
[2018-07-05] MEDS: LIDOCAINE PATCH REMOVAL MC SCH (21:33)
[2018-07-06] MEDS ORDERED: METHADONE HCL 5 MG TABLET ONE (05:40)
[2018-07-06] MEDS ORDERED: METHADONE HCL 40 MG DISPERSABLE TABLET ONE (05:41)
[2018-07-06] MEDS ORDERED: METHADONE HCL 10 MG TABLET ONE (05:41)
[2018-07-06] MEDS: CYCLOBENZAPRINE HCL 5 MG TABLET PO SCH ×3 (06:35→21:37)
[2018-07-06] MEDS: METHADONE 120 MG, METHADONE 20 MG, METHADONE 5 MG PO SCH (06:36)
[2018-07-06] MEDS: FERROUS SO4 325 MG TABLET (FP) PO SCH (08:12)
[2018-07-06] MEDS ORDERED: PT OWN MED DRAWER 7, Y5N ONE (09:09)
[2018-07-06] MEDS: PRENATAL VITAMINS W/ FOLIC ACID TABLET (FP) PO SCH (10:56)
[2018-07-06] MEDS: LIDOCAINE 5% TOPICAL PATCH TP SCH (10:56)
[2018-07-06] MEDS: MINERAL OIL/PETROLAT/WATER TOPICAL CREAM 113 GM JAR TP SCH (10:58)
[2018-07-06] MEDS: TOLNAFTATE 1% CREAM 15 GM TUBE TP SCH ×2 (10:58→21:38)
[2018-07-06] MEDS: BUDESONIDE/FORMETEROL FUMARATE 80/4.5 mcg INHALER IH SCH ×2 (10:58→21:38)
[2018-07-06] MEDS: hydrOXYzine PAMOATE 50 MG CAPSULE (FP) PO PRN (21:37)
[2018-07-06] MEDS: LIDOCAINE PATCH REMOVAL MC SCH (21:38)
[2018-07-06] MEDS: THIAMINE HCL 100 MG TABLET (FP) PO SCH (21:38)
[2018-07-07] MEDS ORDERED: METHADONE HCL 10 MG TABLET ONE (06:35)
[2018-07-07] MEDS ORDERED: METHADONE HCL 5 MG TABLET ONE (06:35)
[2018-07-07] MEDS ORDERED: METHADONE HCL 40 MG DISPERSABLE TABLET ONE (06:36)
[2018-07-07] MEDS: CYCLOBENZAPRINE HCL 5 MG TABLET PO SCH ×3 (06:38→21:57)
[2018-07-07] MEDS: METHADONE 120 MG, METHADONE 20 MG, METHADONE 5 MG PO SCH (06:39)
[2018-07-07] MEDS: FERROUS SO4 325 MG TABLET (FP) PO SCH (07:07)
[2018-07-07] MEDS ORDERED: PT OWN MED DRAWER 7, Y5N ONE ×2 (09:21→22:11)
[2018-07-07] MEDS: LIDOCAINE 5% TOPICAL PATCH TP SCH (10:40)
[2018-07-07] MEDS: PRENATAL VITAMINS W/ FOLIC ACID TABLET (FP) PO SCH (10:40)
[2018-07-07] MEDS: MINERAL OIL/PETROLAT/WATER TOPICAL CREAM 113 GM JAR TP SCH (10:40)
[2018-07-07] MEDS: TOLNAFTATE 1% CREAM 15 GM TUBE TP SCH ×2 (10:40→21:58)
[2018-07-07] MEDS: BUDESONIDE/FORMETEROL FUMARATE 80/4.5 mcg INHALER IH SCH ×2 (10:40→21:58)
[2018-07-07] MEDS: hydrOXYzine PAMOATE 50 MG CAPSULE (FP) PO PRN (21:57)
[2018-07-07] MEDS: THIAMINE HCL 100 MG TABLET (FP) PO SCH (21:57)
[2018-07-07] MEDS: LIDOCAINE PATCH REMOVAL MC SCH (21:58)
[2018-07-07] MEDS: COLLOIDAL OATMEAL 1 BAR EACH TP PRN (22:12)
[2018-07-08] MEDS ORDERED: METHADONE HCL 5 MG TABLET ONE (03:31)
[2018-07-08] MEDS ORDERED: METHADONE HCL 40 MG DISPERSABLE TABLET ONE (03:31)
[2018-07-08] MEDS ORDERED: METHADONE HCL 10 MG TABLET ONE (03:31)
[2018-07-08] MEDS: METHADONE 120 MG, METHADONE 20 MG, METHADONE 5 MG PO SCH (06:14)
[2018-07-08] MEDS: CYCLOBENZAPRINE HCL 5 MG TABLET PO SCH ×3 (06:16→21:38)
[2018-07-08] MEDS: FERROUS SO4 325 MG TABLET (FP) PO SCH (07:20)
[2018-07-08] MEDS: LIDOCAINE 5% TOPICAL PATCH TP SCH (10:53)
[2018-07-08] MEDS: PRENATAL VITAMINS W/ FOLIC ACID TABLET (FP) PO SCH (10:53)
[2018-07-08] MEDS: BUDESONIDE/FORMETEROL FUMARATE 80/4.5 mcg INHALER IH SCH ×2 (10:54→21:39)
[2018-07-08] MEDS: MINERAL OIL/PETROLAT/WATER TOPICAL CREAM 113 GM JAR TP SCH (10:54)
[2018-07-08] MEDS: TOLNAFTATE 1% CREAM 15 GM TUBE TP SCH ×2 (10:54→21:39)
--- NOTE | 2018-07-08 18:31 | PN ---
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(visually impaired), Obesity, S/P Bariatric surgery Current Medications: Active Medications Generic Name Dose Route Start Last Admin Trade Name Freq PRN Reason Stop Dose Admin Acetaminophen 650 mg 06/25/18 18:51 Tylenol - PO Q4H PRN FEVER Al Hydroxide/Mg Hydroxide 30 ml 06/25/18 18:51 Mylanta Oral Suspension - PO Q6H PRN DYSPEPSIA Albuterol Sulfate 2 puff 06/25/18 18:49 Ventolin Hfa Inhaler - IH Q4H PRN SHORTNESS OF BREATH Budesonide/Formoterol Fumarate 1 puff 06/25/18 22:00 07/08/18 10:54 Symbicort 80/4.5mcg - IH Not Given BID RALPH Colloidal Oatmeal 1 applic 06/29/18 09:48 07/07/18 22:12 Aveeno Soap - TP 1 applic DAILY PRN Administration HYGEINE Cyclobenzaprine HCl 5 mg 06/26/18 22:00 07/08/18 13:36 Cyclobenzaprine Hcl PO 5 mg TID RALPH Administration Eucalyptus/Menthol/Phenol/Sorbitol 1 each 06/25/18 18:51 Cepastat Lozenge - MM Q4H PRN SORE THROAT Ferrous Sulfate 325 mg 06/26/18 08:00 07/08/18 07:20 Feosol - PO 325 mg DAILY@0800 RALPH Administration Guaifenesin 10 ml 06/25/18 18:51 Robitussin Dm - PO Q6H PRN COUGH Hydroxyzine Pamoate 50 mg 06/25/18 18:51 07/07/18 21:57 Vistaril - PO 50 mg Q4H PRN Administration AGITATION Ibuprofen 400 mg 06/25/18 18:51 07/03/18 13:16 Motrin - PO 400 mg Q6H PRN Administration Pain level 4-6 Lidocaine 1 patch 06/26/18 10:00 07/08/18 10:53 Lidoderm Patch - TP 1 patch DAILY RALPH Administration Loperamide HCl 4 mg 06/25/18 18:51 Imodium - PO Q6H PRN DIARRHEA Magnesium Citrate 300 ml 06/25/18 18:51 Citroma - PO Q48H PRN CONSTIPATION Magnesium Hydroxide 30 ml 06/25/18 18:51 Milk Of Magnesia - PO DAILY PRN CONSTIPATION Melatonin 5 mg 06/25/18 22:00 Melatonin PO HS PRN INSOMNIA Methadone HCl 120 mg/ 145 mg 07/03/18 06:00 07/08/18 06:14 Methadone HCl 20 mg/ Methadone PO 07/09/18 05:59 145 mg HCl 5 mg DAILY@0600 RALPH Administration Miscellaneous 1 each 06/25/18 22:00 07/07/18 21:58 Lidoderm Patch Removal MC 1 each DAILY@2200 RALPH Administration Multi-Ingredient Lotion 1 applic 07/02/18 15:15 07/08/18 10:54 Eucerin (Small Jar) - TP Not Given DAILY RALPH Multivit/Folic Acid/Iron 1 tab 06/26/18 10:00 07/08/18 10:53 Vitamins (Sjr) - PO 1 tab DAILY RALPH Administration Pseudoephedrine/Triprolidine 1 combo 06/25/18 18:51 Actifed - PO TID PRN NASAL CONGESTION Thiamine HCl 100 mg 06/25/18 22:00 07/07/18 21:57 Vitamin B1 - PO 100 mg HS RALPH Administration Tolnaftate 1 applic 07/02/18 22:00 07/08/18 10:54 Tinactin 1% Cream - TP Not Given BID RALPH Current Side Effect: No Lab tests ordered: Yes Lab tests reviewed: Yes Provider note:: Patient will complete this program on 07/09/18. She has met her treatment goals and will continue to address her issues in outpatient treatment at [facility], [facility] at [address] [place] [address]. 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 She is stable for discharge on 07/09/18 Total face to face time:: 35 Mental Status Exam - Mental Status Exam Alert and Oriented to: Time, Place, Person Cognitive Function: Fair Patient Appearance: Well Groomed Mood: Hopeful, Euthymic Affect: Appropriate Patient Behavior: Cooperative Speech Pattern: Clear Voice Loudness: Normal Thought Process: Intact Thought Disorder: Not Present Hallucinations: Denies Suicidal Ideation: Denies Homicidal Ideation: Denies Insight/Judgement: Fair Sleep: Fair Appetite: Good Muscle strength/Tone: Normal Gait/Station: Normal Psychiatric Treatment Plan - Problem List (1) Alcohol dependence Current Visit: Yes Qualifiers: Substance use status: uncomplicated Qualified Code(s): F10.20 - Alcohol dependence, uncomplicated (2) Opioid dependence on agonist therapy Current Visit: Yes Comment: on MMTP on 145 mg qd, last medicated toda. Dose pending verification (3) Post traumatic stress disorder (PTSD) Current Visit: Yes Comment: By history. (4) Substance induced mood disorder Current Visit: Yes (5) Anemia Current Visit: Yes Qualifiers: Anemia type: iron deficiency Iron deficiency anemia type: inadequate dietary iron intake Qualified Code(s): D50.8 - Other iron deficiency anemias (6) Arthritis of knee, left Current Visit: Yes (7) Asthma Current Visit: Yes Qualifiers: Asthma severity: mild intermittent Asthma complication type: with status asthmaticus (8) Chronic back pain Current Visit: Yes Qualifiers: Back pain location: low back pain Back pain laterality: bilateral Sciatica presence: without sciatica Qualified Code(s): M54.5 - Low back pain; G89.29 - Other chronic pain (9) DM (diabetes mellitus), type 2 Current Visit: Yes Qualifiers: Diabetes mellitus fdc insulin use: without fdc use Diabetes mellitus complication status: without complication Qualified Code(s): E11.9 - Type 2 diabetes mellitus without complications Comment: DIETARY CONTROL (10) Hypertension Current Visit: Yes Qualifiers: Hypertension type: essential hypertension Qualified Code(s): I10 - Essential (primary) hypertension (11) Low plasma platelet-activating factor acetylhydrolase Current Visit: Yes Comment: SINCE (12) Nystagmus Current Visit: Yes (13) Vision impairment Current Visit: Yes Comment: SINCE BLIND RIGHT EYE Initial treatment plan: Patient will be discharged tomorrow and referred to [facility] for outpatient treatment
[2018-07-08] MEDS ORDERED: PT OWN MED DRAWER 7, Y5N ONE (20:39)
[2018-07-08] MEDS: THIAMINE HCL 100 MG TABLET (FP) PO SCH (21:38)
[2018-07-08] MEDS: hydrOXYzine PAMOATE 50 MG CAPSULE (FP) PO PRN (21:38)
[2018-07-08] MEDS: LIDOCAINE PATCH REMOVAL MC SCH (21:39)
[2018-07-09] MEDS ORDERED: METHADONE HCL 5 MG TABLET ONE (03:18)
[2018-07-09] MEDS ORDERED: METHADONE HCL 40 MG DISPERSABLE TABLET ONE (03:18)
[2018-07-09] MEDS ORDERED: METHADONE HCL 10 MG TABLET ONE (03:18)
[2018-07-09] MEDS: METHADONE 120 MG, METHADONE 20 MG, METHADONE 5 MG PO SCH (06:25)
[2018-07-09] MEDS: CYCLOBENZAPRINE HCL 5 MG TABLET PO SCH (06:26)
[2018-07-09] MEDS: FERROUS SO4 325 MG TABLET (FP) PO SCH (07:07)
[2018-07-09 07:16] VITALS: BP 106/58; PULSE 100; TEMP 98.2
[2018-07-09] MEDS ORDERED: PT OWN MED DRAWER 7, Y5N ONE (08:53)
[2018-07-09] MEDS: BUDESONIDE/FORMETEROL FUMARATE 80/4.5 mcg INHALER IH SCH (09:58)
[2018-07-09] MEDS: LIDOCAINE 5% TOPICAL PATCH TP SCH (09:58)
[2018-07-09] MEDS: PRENATAL VITAMINS W/ FOLIC ACID TABLET (FP) PO SCH (09:58)
[2018-07-09] MEDS: TOLNAFTATE 1% CREAM 15 GM TUBE TP SCH (09:59)
[2018-07-09] MEDS: MINERAL OIL/PETROLAT/WATER TOPICAL CREAM 113 GM JAR TP SCH (09:59)
== END 2018-07-09 10:10 | disposition home or self-care (01) | DRG 772 ==
LOC: YASAS 13:27 → UNDOADMIN 17:30 → Y3E 17:30
PROVIDERS: ADMIT Psychiatry & Neurology Psychiatry; ATTEND Psychiatry & Neurology Psychiatry
PROC: HZ42ZZZ Group Counseling for Substance Abuse Treatment, Cognitive-Behavioral (ICD-10-PCS; principal; 2018-06-25)
DX: F10.20 Alcohol dependence, uncomplicated (principal); F11.20 Opioid dependence, uncomplicated; F19.24 Other psychoactive substance dependence with psychoactive substance-induced mood disorder; F43.10 Post-traumatic stress disorder, unspecified; I10 Essential (primary) hypertension; J45.909 Unspecified asthma, uncomplicated; E11.9 Type 2 diabetes mellitus without complications; Z79.84 Long term (current) use of oral hypoglycemic drugs; D50.8 Other iron deficiency anemias; D68.2 Hereditary deficiency of other clotting factors; M17.12 Unilateral primary osteoarthritis, left knee; M54.5 Low back pain; G89.29 Other chronic pain; H55.01 Congenital nystagmus; H54.7 Unspecified visual loss; E66.01 Morbid (severe) obesity due to excess calories; Z68.44 Body mass index [BMI] 60.0-69.9, adult; Z88.0 Allergy status to penicillin; Z88.2 Allergy status to sulfonamides
CPT/HCPCS: 81003; 82962